=== PATIENT | female | born 1985 | race Hispanic/Latino ===

== ENCOUNTER 2017-01-13 14:23 | Outpatient (RCR) | payer MEDICARE, MEDICAID ==
[~2017-01-13 14:23] MED LIST: /AMIT100TA PO; AMIT75TA PO; ATEN25TA PO; BUSP15TA47 PO; BUSP5TA PO; CARI350T PO; CIPR-250 PO; COLA50CA3 PO; DICL50TAB PO; FLAG500T PO; FLON0.054; HYDR50TA70 PO; HYDRPOW14 PR; LACT20EL PO; ORTHTAB14 PO; PRENTAB45 PO; PROC2.5C PR; TRAM50TA2 PO; TYLE-18 PO; VITA200015 PO
== END 2017-01-15 ==
LOC: M PT 14:23
PROVIDERS: ATTEND Family Medicine
DX: Z51.89 Encounter for other specified aftercare (principal); M25.561 Pain in right knee; M25.562 Pain in left knee
CPT/HCPCS: 97110; 97161; G8978; G8979

== ENCOUNTER 2017-02-10 14:30 | Outpatient (RCR) | payer MEDICARE, MEDICAID ==
[2017-02-11] MEDS ORDERED: ETOD500T PO (11:53)
[2017-02-11] MEDS ORDERED: VITA200025 PO (11:53)
[2017-02-11] MEDS ORDERED: NORT25CA2 PO (11:53)
[2017-02-11] MEDS ORDERED: RIZA10TA4 PO (11:53)
[2017-02-11] MEDS ORDERED: BENT10CA PO (11:53)
[2017-02-11] MEDS ORDERED: DULO1CAP2 PO (11:53)
[2017-02-11] MEDS ORDERED: CLON-412 PO (11:53)
[2017-02-11] MEDS ORDERED: PRED20TA PO (14:55)
[2017-02-11] MEDS ORDERED: GABA-282 PO (14:55)
== END 2017-02-14 ==
LOC: M PT 14:30
PROVIDERS: ATTEND Family Medicine
DX: Z51.89 Encounter for other specified aftercare (principal); M25.561 Pain in right knee; M25.562 Pain in left knee

== ENCOUNTER 2017-02-11 11:26 | Emergency (ER) | payer MEDICARE, MEDICAID ==
[~2017-02-11] VITALS: Ht 157.5 cm; Wt 118.2 kg
[2017-02-11] MEDS ORDERED: BENT10CA PO (11:53)
[2017-02-11] MEDS ORDERED: ETOD500T PO (11:53)
[2017-02-11] MEDS ORDERED: VITA200025 PO (11:53)
[2017-02-11] MEDS ORDERED: CLON-412 PO (11:53)
[2017-02-11] MEDS ORDERED: RIZA10TA4 PO (11:53)
[2017-02-11] MEDS ORDERED: DULO1CAP2 PO (11:53)
[2017-02-11] MEDS ORDERED: NORT25CA2 PO (11:53)
[2017-02-11] MEDS ORDERED: methylPREDNISolone INJ 125 MG/2 ML VIAL (J2930) IV ONE (12:30)
[2017-02-11] MEDS ORDERED: GABAPENTIN 300 MG CAP PO ONE (12:30)
[2017-02-11] MEDS ORDERED: KETOROLAC 30 MG/ML VIAL (J1885) IV ONE (12:30)
[2017-02-11 13:10] LABS: BASO # 0.1 10^3/uL (0.0-0.2); BASO % 0.6 % (0.0-1.0); EOS # 0.2 10^3/uL (0.0-0.50); EOS % 1.6 % (0.0-3.0); IMMATURE GRANULOCYTE % 0.8 % (0-0); LYMPH # 2.4 10^3/uL (1.5-4.5); LYMPH % 23.1 % (24.0-44.0); MEAN CORPUSCULAR HEMOGLOBIN 30.2 pg (27.0-33.0); MEAN CORPUSCULAR HGB CONC 34.2 g/dl (32.0-36.5); MEAN CORPUSCULAR VOLUME 88.4 fl (80.0-96.0); MONO # 0.6 10^3/uL (0.0-0.8); MONO % 5.9 % (0.0-5.0); NEUTROPHILS # 7.2 10^3/uL (1.8-7.7); PLATELET COUNT, AUTOMATED 383 10^3/uL (150-450); RED CELL DISTRIBUTION WIDTH 13.3 % (11.5-14.5); WHITE BLOOD COUNT 10.6 10^3/uL (4.0-10.0)
[2017-02-11 13:33] LABS: ERYTHROCYTE SEDIMENTATION RATE 25 mm/hr (0-20)
[2017-02-11 13:35] LABS: ANION GAP 6 MEQ/L (8-16); BLOOD UREA NITROGEN 8 MG/DL (7-18); CARBON DIOXIDE LEVEL 27 MEQ/L (21-32); CHLORIDE LEVEL 102 MEQ/L (98-107); CREATININE FOR GFR 0.85 MG/DL (0.55-1.02); GLOMERULAR FILTRATION RATE > 60.0 (>60); GLUCOSE, FASTING 87 MG/DL (70-105); SODIUM LEVEL 135 MEQ/L (136-145)
--- NOTE | 2017-02-11 13:35 | REP ---
CHEST, TWO VIEWS: There is no evidence of acute infiltrate. No pleural effusion is seen. The heart is normal in size. The mediastinal silhouette is unremarkable. The visualized osseous structures are intact. IMPRESSION: No acute pulmonary disease. Signed by Jun Luciano MD 02/11/2017 05:06 P
[2017-02-11 14:51] VITALS: BP 130/75
[2017-02-11] MEDS ORDERED: PRED20TA PO (14:55)
[2017-02-11] MEDS ORDERED: GABA-282 PO (14:55)
== END 2017-02-11 15:03 | disposition home or self-care (01) ==
LOC: M ED 11:26
DX: M79.1 Myalgia (principal); M79.7 Fibromyalgia; F41.9 Anxiety disorder, unspecified; F32.9 Major depressive disorder, single episode, unspecified; F43.10 Post-traumatic stress disorder, unspecified; J30.2 Other seasonal allergic rhinitis; F17.200 Nicotine dependence, unspecified, uncomplicated; Z79.899 Other long term (current) drug therapy; Z91.018 Allergy to other foods; Z88.8 Allergy status to other drugs, medicaments and biological substances; Z91.89 Other specified personal risk factors, not elsewhere classified
CPT/HCPCS: 71020; 80048; 81001; 85025; 85652; 86140; 87804; 96374; 96375; 99283; J1885; J2930

== ENCOUNTER 2017-06-07 17:39 | Inpatient (IN) | payer MEDICARE, MEDICAID ==
[2017-06-07] MEDS: MORPHINE 4 MG/ML 1ML SYRINGE IV ×3 (19:15→23:15)
[2017-06-07] MEDS: NS 1,000 ML IV (19:15)
[2017-06-07] MEDS: GASTROGRAFIN SOLUTION 30ML PO ×2 (19:30→20:00)
[2017-06-07 19:40] LABS: BASO # 0.1 10^3/uL (0.0-0.2); BASO % 0.7 % (0.0-1.0); EOS # 0.1 10^3/uL (0.0-0.50); EOS % 0.6 % (0.0-3.0); HEMATOCRIT 41.9 % (36.0-47.0); HEMOGLOBIN 14.4 g/dl (12.0-16.0); IMMATURE GRANULOCYTE # 0.1 10^3/uL (0-0); IMMATURE GRANULOCYTE % 0.6 % (0-0); LYMPH # 2.4 10^3/uL (1.5-4.5); MEAN CORPUSCULAR HEMOGLOBIN 29.9 pg (27.0-33.0); MEAN CORPUSCULAR HGB CONC 34.4 g/dl (32.0-36.5); MEAN CORPUSCULAR VOLUME 87.1 fl (80.0-96.0); MONO # 0.7 10^3/uL (0.0-0.8); MONO % 5.6 % (0.0-5.0); NEUTROPHILS # 9.4 10^3/uL (1.8-7.7); NEUTROPHILS % 73.5 % (36.0-66.0); PLATELET COUNT, AUTOMATED 451 10^3/uL (150-450); RED BLOOD COUNT 4.81 10^6/uL (4.00-5.40); WHITE BLOOD COUNT 12.8 10^3/uL (4.0-10.0)
[2017-06-07 19:54] LABS: ALBUMIN 4.1 GM/DL (3.2-5.2); ALBUMIN/GLOBULIN RATIO 0.93 (1.00-1.93); ALKALINE PHOSPHATASE 102 U/L (45-117); ALT/SGPT 30 U/L (12-78); ANION GAP 7 MEQ/L (8-16); AST/SGOT 26 U/L (7-37); BILIRUBIN,DIRECT 0.2 MG/DL (0.0-0.2); BILIRUBIN,TOTAL 0.7 MG/DL (0.2-1.0); BLOOD UREA NITROGEN 8 MG/DL (7-18); CALCIUM LEVEL 9.1 MG/DL (8.5-10.1); CARBON DIOXIDE LEVEL 25 MEQ/L (21-32); CHLORIDE LEVEL 107 MEQ/L (98-107); CREATININE FOR GFR 0.83 MG/DL (0.55-1.02); GLOMERULAR FILTRATION RATE > 60.0 (>60); GLUCOSE, FASTING 94 MG/DL (70-105); LIPASE 802 U/L (73-393); POTASSIUM SERUM 4.1 MEQ/L (3.5-5.1); SODIUM LEVEL 139 MEQ/L (136-145); TOTAL PROTEIN 8.5 GM/DL (6.4-8.2)
[2017-06-07] MEDS ORDERED: ISOVUE-370 76% 100ML VIAL (Q9967) As Ordered (20:38)
[2017-06-07] MEDS ORDERED: ONDANSETRON 4MG/2ML VIAL (J2405) As Ordered (20:48)
[2017-06-07] MEDS: ONDANSETRON 4MG/2ML VIAL (J2405) IV ×2 (20:52→23:15)
[2017-06-07 21:00] LABS: APPEARANCE, URINE HAZY (CLEAR); BACTERIA, URINE AUTO NEGATIVE (NEGATIVE); BILIRUBIN, URINE AUTO 2+ (NEGATIVE); BLOOD, URINE BLOOD NEGATIVE (NEGATIVE); COLOR, URINE YELLOW (YELLOW); GLUCOSE, URINE (UA) AUTO NEGATIVE (NEGATIVE); KETONE, URINE AUTO TRACE mg/dL (NEGATIVE); LEUKOCYTE ESTERASE, URINE AUTO NEGATIVE (NEGATIVE); MUCUS, URINE SMALL (NEGATIVE); NITRITE, URINE AUTO NEGATIVE (NEGATIVE); PROTEIN, URINE AUTO NEGATIVE (NEGATIVE); RBC, URINE AUTO 10 /HPF (0-3); SQUAMOUS EPITHELIAL CELL UR AU 7 /HPF (0-6); WBC, URINE AUTO 2 /HPF (0-3)
[2017-06-07] MEDS: NORCO 5/325MG TABLET (BULK FOR ED) PO (22:15)
[2017-06-08] MEDS ORDERED: ACETAMINOPHEN TAB 650MG DOSE (2X325MG) PO (00:45)
[2017-06-08] MEDS ORDERED: hydrOXYzine 50 MG TAB PO (02:15)
[2017-06-08] MEDS ORDERED: RIZATRIPTAN MLT 10 MG TAB PO (02:15)
[2017-06-08] MEDS: CIPROFLOXACIN 400 MG in APPROPRIATE DILUENT 1 EA IV ×2 (02:23→15:45)
[2017-06-08] MEDS: metroNIDAZOLE 500 MG in APPROPRIATE DILUENT 1 EA IV ×3 (02:23→17:58)
[2017-06-08] MEDS: PERCOCET 5MG/325MG TAB PO ×3 (02:24→22:59)
[2017-06-08] MEDS: ONDANSETRON 4MG/2ML VIAL (J2405) IV ×3 (05:26→18:04)
[2017-06-08] MEDS: MORPHINE 2 MG/ML 1ML SYRINGE IV ×2 (07:04→14:07)
[2017-06-08] MEDS: DULoxetine 30 MG CAP (CYMBALTA) PO (08:56)
[2017-06-08] MEDS: VITAMIN D 1,000 INTERNATIONAL UNITS TABLET PO (08:56)
[2017-06-08] MEDS: busPIRone 5 MG TAB PO ×2 (08:56→20:47)
[2017-06-08] MEDS: ENOXAPARIN 40 MG/0.4 ML SYRINGE (J1650) SC (08:57)
[2017-06-08] MEDS: cloNIDine 0.1 MG TAB PO ×2 (08:57→20:47)
[2017-06-08 09:57] LABS: CHOLESTEROL LEVEL 166 MG/DL (<200); CHOLESTEROL RISK RATIO 2.553 (<5); HDL CHOLESTEROL 65 MG/DL (>40); LDL CHOLESTEROL 81.4 MG/DL (<100); NON-HDL-C 101 MG/DL; TRIGLYCERIDES LEVEL 98 MG/DL (<150)
[2017-06-08] MEDS: DICYCLOMINE 10 MG CAP PO (11:13)
[2017-06-08] MEDS: NS 1,000 ML IV (14:45)
[2017-06-09] MEDS: metroNIDAZOLE 500 MG in APPROPRIATE DILUENT 1 EA IV ×3 (01:11→18:39)
[2017-06-09] MEDS: CIPROFLOXACIN 400 MG in APPROPRIATE DILUENT 1 EA IV ×2 (02:09→15:40)
[2017-06-09] MEDS: MORPHINE 2 MG/ML 1ML SYRINGE IV (02:16)
[2017-06-09] MEDS: NS 1,000 ML IV ×2 (02:54→15:45)
[2017-06-09 07:01] LABS: HEMATOCRIT 36.7 % (36.0-47.0); HEMOGLOBIN 12.5 g/dl (12.0-16.0); MEAN CORPUSCULAR HEMOGLOBIN 30.4 pg (27.0-33.0); MEAN CORPUSCULAR HGB CONC 34.1 g/dl (32.0-36.5); MEAN CORPUSCULAR VOLUME 89.3 fl (80.0-96.0); PLATELET COUNT, AUTOMATED 333 10^3/uL (150-450); RED BLOOD COUNT 4.11 10^6/uL (4.00-5.40); WHITE BLOOD COUNT 6.6 10^3/uL (4.0-10.0)
[2017-06-09 07:31] LABS: ALBUMIN 3.5 GM/DL (3.2-5.2); ALKALINE PHOSPHATASE 78 U/L (45-117); ALT/SGPT 30 U/L (12-78); ANION GAP 9 MEQ/L (8-16); AST/SGOT 24 U/L (7-37); BILIRUBIN,TOTAL 0.5 MG/DL (0.2-1.0); BLOOD UREA NITROGEN 6 MG/DL (7-18); CALCIUM LEVEL 8.5 MG/DL (8.5-10.1); CARBON DIOXIDE LEVEL 24 MEQ/L (21-32); CHLORIDE LEVEL 106 MEQ/L (98-107); CREATININE FOR GFR 0.82 MG/DL (0.55-1.02); GLOMERULAR FILTRATION RATE > 60.0 (>60); GLUCOSE, FASTING 84 MG/DL (70-100); LIPASE 105 U/L (73-393); POTASSIUM SERUM 3.9 MEQ/L (3.5-5.1); SODIUM LEVEL 139 MEQ/L (136-145)
[2017-06-09] MEDS: VITAMIN D 1,000 INTERNATIONAL UNITS TABLET PO (07:50)
[2017-06-09] MEDS: DICYCLOMINE 10 MG CAP PO (07:50)
[2017-06-09] MEDS: cloNIDine 0.1 MG TAB PO ×2 (07:51→21:03)
[2017-06-09] MEDS: DULoxetine 30 MG CAP (CYMBALTA) PO (07:51)
[2017-06-09] MEDS: busPIRone 5 MG TAB PO ×2 (07:51→21:03)
[2017-06-09] MEDS: PERCOCET 5MG/325MG TAB PO ×2 (07:52→16:37)
[2017-06-09] MEDS: ONDANSETRON 4MG/2ML VIAL (J2405) IV ×2 (07:52→16:35)
[2017-06-09] MEDS: ENOXAPARIN 40 MG/0.4 ML SYRINGE (J1650) SC (07:53)
[2017-06-10] MEDS: NS 1,000 ML IV (00:38)
[2017-06-10] MEDS: metroNIDAZOLE 500 MG in APPROPRIATE DILUENT 1 EA IV ×2 (02:00→09:12)
[2017-06-10] MEDS: CIPROFLOXACIN 400 MG in APPROPRIATE DILUENT 1 EA IV (03:12)
[2017-06-10] MEDS: ONDANSETRON 4MG/2ML VIAL (J2405) IV (04:05)
[2017-06-10 07:20] LABS: HEMATOCRIT 34.5 % (36.0-47.0); HEMOGLOBIN 11.5 g/dl (12.0-16.0); MEAN CORPUSCULAR HEMOGLOBIN 29.7 pg (27.0-33.0); MEAN CORPUSCULAR HGB CONC 33.3 g/dl (32.0-36.5); MEAN CORPUSCULAR VOLUME 89.1 fl (80.0-96.0); PLATELET COUNT, AUTOMATED 320 10^3/uL (150-450); RED BLOOD COUNT 3.87 10^6/uL (4.00-5.40); RED CELL DISTRIBUTION WIDTH 12.9 % (11.5-14.5); WHITE BLOOD COUNT 6.5 10^3/uL (4.0-10.0)
[2017-06-10 07:35] LABS: ALBUMIN 3.2 GM/DL (3.2-5.2); ALBUMIN/GLOBULIN RATIO 1.03 (1.00-1.93); ALKALINE PHOSPHATASE 71 U/L (45-117); ALT/SGPT 34 U/L (12-78); ANION GAP 5 MEQ/L (8-16); AST/SGOT 29 U/L (7-37); BILIRUBIN,TOTAL 0.4 MG/DL (0.2-1.0); BLOOD UREA NITROGEN 5 MG/DL (7-18); CALCIUM LEVEL 8.3 MG/DL (8.5-10.1); CARBON DIOXIDE LEVEL 28 MEQ/L (21-32); CHLORIDE LEVEL 106 MEQ/L (98-107); CREATININE FOR GFR 0.88 MG/DL (0.55-1.02); GLOMERULAR FILTRATION RATE > 60.0 (>60); GLUCOSE, FASTING 86 MG/DL (70-100); SODIUM LEVEL 139 MEQ/L (136-145); TOTAL PROTEIN 6.3 GM/DL (6.4-8.2)
[2017-06-10] MEDS: ENOXAPARIN 40 MG/0.4 ML SYRINGE (J1650) SC (08:17)
[2017-06-10] MEDS: DULoxetine 30 MG CAP (CYMBALTA) PO (08:17)
[2017-06-10] MEDS: busPIRone 5 MG TAB PO ×2 (08:17→20:17)
[2017-06-10] MEDS: VITAMIN D 1,000 INTERNATIONAL UNITS TABLET PO (08:20)
[2017-06-10] MEDS: cloNIDine 0.1 MG TAB PO ×2 (08:20→20:18)
[2017-06-10] MEDS: PERCOCET 5MG/325MG TAB PO ×2 (08:21→12:45)
[2017-06-10] MEDS: DICYCLOMINE 10 MG CAP PO (09:12)
[2017-06-10] MEDS ORDERED: metroNIDAZOLE (FLAGYL) 500 MG TAB PO (14:00)
[2017-06-10] MEDS: metroNIDAZOLE (FLAGYL) 500 MG TAB PO (17:09)
[2017-06-10] MEDS: CIPROFLOXACIN 500 MG TAB PO (17:09)
[2017-06-10] MEDS ORDERED: FLEET ENEMA PR (20:00)
[2017-06-10] MEDS: MIRALAX *UNIT DOSE* 17GM PACKET PO (20:17)
[2017-06-10] MEDS: MOM 30ML SUSPENSION UDC PO (20:17)
[2017-06-10] MEDS: BISACODYL 5 MG TAB PO (20:18)
[2017-06-11] MEDS: metroNIDAZOLE (FLAGYL) 500 MG TAB PO ×2 (01:23→08:09)
[2017-06-11] MEDS: CIPROFLOXACIN 500 MG TAB PO (05:34)
[2017-06-11 06:32] LABS: HEMATOCRIT 36.3 % (36.0-47.0); HEMOGLOBIN 12.2 g/dl (12.0-16.0); MEAN CORPUSCULAR HEMOGLOBIN 29.8 pg (27.0-33.0); MEAN CORPUSCULAR HGB CONC 33.6 g/dl (32.0-36.5); MEAN CORPUSCULAR VOLUME 88.5 fl (80.0-96.0); PLATELET COUNT, AUTOMATED 308 10^3/uL (150-450); RED CELL DISTRIBUTION WIDTH 12.8 % (11.5-14.5); WHITE BLOOD COUNT 7.1 10^3/uL (4.0-10.0)
[2017-06-11 06:56] LABS: ALBUMIN 3.3 GM/DL (3.2-5.2); ALBUMIN/GLOBULIN RATIO 0.85 (1.00-1.93); ALKALINE PHOSPHATASE 79 U/L (45-117); ALT/SGPT 47 U/L (12-78); ANION GAP 5 MEQ/L (8-16); AST/SGOT 55 U/L (7-37); BILIRUBIN,TOTAL 0.3 MG/DL (0.2-1.0); BLOOD UREA NITROGEN 5 MG/DL (7-18); CALCIUM LEVEL 8.4 MG/DL (8.5-10.1); CARBON DIOXIDE LEVEL 28 MEQ/L (21-32); CHLORIDE LEVEL 106 MEQ/L (98-107); CREATININE FOR GFR 0.92 MG/DL (0.55-1.02); GLOMERULAR FILTRATION RATE > 60.0 (>60); GLUCOSE, FASTING 96 MG/DL (70-100); POTASSIUM SERUM 4.2 MEQ/L (3.5-5.1); SODIUM LEVEL 139 MEQ/L (136-145); TOTAL PROTEIN 7.2 GM/DL (6.4-8.2)
[2017-06-11] MEDS: cloNIDine 0.1 MG TAB PO (08:09)
[2017-06-11] MEDS: VITAMIN D 1,000 INTERNATIONAL UNITS TABLET PO (08:09)
[2017-06-11] MEDS: DULoxetine 30 MG CAP (CYMBALTA) PO (08:09)
[2017-06-11] MEDS: ENOXAPARIN 40 MG/0.4 ML SYRINGE (J1650) SC (08:09)
[2017-06-11] MEDS: BISACODYL 5 MG TAB PO (08:10)
[2017-06-11] MEDS: busPIRone 5 MG TAB PO (08:10)
== END 2017-06-11 13:25 | disposition home or self-care (01) | DRG 392 ==
LOC: M ED INP 06-08 00:43 → M MS4PR 06-08 01:40 → M ED 17:39
DX: K52.9 Noninfective gastroenteritis and colitis, unspecified (principal); G47.33 Obstructive sleep apnea (adult) (pediatric); F17.210 Nicotine dependence, cigarettes, uncomplicated; M79.7 Fibromyalgia; Z98.1 Arthrodesis status; Z99.89 Dependence on other enabling machines and devices; Z79.899 Other long term (current) drug therapy; Z91.018 Allergy to other foods; Z91.048 Other nonmedicinal substance allergy status; Z88.8 Allergy status to other drugs, medicaments and biological substances

== ENCOUNTER → 2017-06-17 | Outpatient (CLI) | payer MEDICARE, MEDICAID | LOC: M RAD 15:22 | DX: R10.84 Generalized abdominal pain (principal); R11.2 Nausea with vomiting, unspecified; R19.7 Diarrhea, unspecified; Z97.5 Presence of (intrauterine) contraceptive device | CPT/HCPCS: 74021 ==

== ENCOUNTER → 2017-06-21 | Outpatient (REF) | payer MEDICARE, MEDICAID | LOC: M LAB 09:08 | DX: R19.7 Diarrhea, unspecified (principal) | CPT/HCPCS: 83630 ==

== ENCOUNTER 2017-07-03 01:23 | Emergency (ER) | payer MEDICARE, MEDICAID ==
[2017-07-03 03:12] LABS: INFLUENZA A AMPLIFICATION NEGATIVE (NEGATIVE); INFLUENZA B AMPLIFICATION NEGATIVE (NEGATIVE)
== END 2017-07-03 03:33 | disposition left against medical advice (07) ==
LOC: M ED 01:23
DX: Z53.29 Procedure and treatment not carried out because of patient's decision for other reasons (principal)

== ENCOUNTER 2017-07-21 10:51 | Outpatient (CLI) | payer MEDICARE, MEDICAID | END 2017-07-22 | LOC: M LAB 10:51 | DX: A04.72 Enterocolitis due to Clostridium difficile, not specified as recurrent (principal) ==

== ENCOUNTER 2017-07-29 10:27 | Emergency (ER) | payer MEDICARE, MEDICAID ==
[2017-07-29] MEDS: METOCLOPRAMIDE INJ 10MG/2ML VIAL (J2765) IV (11:15)
[2017-07-29] MEDS: NS 1,000 ML IV (11:15)
[2017-07-29 11:29] LABS: BASO # 0.1 10^3/uL (0.0-0.2); BASO % 0.6 % (0.0-1.0); EOS # 0.1 10^3/uL (0.0-0.50); EOS % 1.1 % (0.0-3.0); HEMATOCRIT 39.8 % (36.0-47.0); HEMOGLOBIN 13.6 g/dl (12.0-16.0); IMMATURE GRANULOCYTE % 0.5 % (0-3.0); LYMPH % 23.1 % (24.0-44.0); MEAN CORPUSCULAR HEMOGLOBIN 29.8 pg (27.0-33.0); MEAN CORPUSCULAR HGB CONC 34.2 g/dl (32.0-36.5); MEAN CORPUSCULAR VOLUME 87.3 fl (80.0-96.0); MONO # 0.5 10^3/uL (0.0-0.8); MONO % 6.1 % (0.0-5.0); NEUTROPHILS % 68.6 % (36.0-66.0); PLATELET COUNT, AUTOMATED 328 10^3/uL (150-450); RED BLOOD COUNT 4.56 10^6/uL (4.00-5.40); RED CELL DISTRIBUTION WIDTH 13.1 % (11.5-14.5); WHITE BLOOD COUNT 8.8 10^3/uL (4.0-10.0)
[2017-07-29 11:52] LABS: ANION GAP 8 MEQ/L (8-16); BLOOD UREA NITROGEN 5 MG/DL (7-18); CALCIUM LEVEL 8.8 MG/DL (8.5-10.1); CARBON DIOXIDE LEVEL 25 MEQ/L (21-32); CHLORIDE LEVEL 107 MEQ/L (98-107); CREATININE FOR GFR 0.74 MG/DL (0.55-1.30); GLOMERULAR FILTRATION RATE > 60.0 (>60); GLUCOSE, FASTING 99 MG/DL (70-100); POTASSIUM SERUM 4.1 MEQ/L (3.5-5.1); SODIUM LEVEL 140 MEQ/L (136-145)
[2017-07-29] MEDS: MORPHINE 4 MG/ML 1ML VIAL (J2270) IV (12:26)
== END 2017-07-29 14:35 | disposition home or self-care (01) ==
LOC: M ED 10:27
DX: R11.2 Nausea with vomiting, unspecified (principal); R19.7 Diarrhea, unspecified; R10.9 Unspecified abdominal pain; K58.9 Irritable bowel syndrome, unspecified; M79.7 Fibromyalgia; N80.9 Endometriosis, unspecified; M43.26 Fusion of spine, lumbar region; J30.2 Other seasonal allergic rhinitis; Z86.19 Personal history of other infectious and parasitic diseases; Z87.891 Personal history of nicotine dependence; Z79.899 Other long term (current) drug therapy; Z88.8 Allergy status to other drugs, medicaments and biological substances; Z91.89 Other specified personal risk factors, not elsewhere classified; Z91.018 Allergy to other foods
CPT/HCPCS: J2270

== ENCOUNTER → 2017-08-10 | Outpatient (CLI) | payer MEDICARE, MEDICAID | LOC: M RAD 07:09 | DX: R10.84 Generalized abdominal pain (principal); K82.8 Other specified diseases of gallbladder | CPT/HCPCS: 76705 ==

== ENCOUNTER 2017-10-01 08:46 | Emergency (ER) | payer MEDICARE, MEDICAID ==
[2017-10-01] MEDS: NS 1,000 ML IV (09:30)
[2017-10-01 09:59] LABS: BASO # 0.1 10^3/uL (0.0-0.2); BASO % 0.6 % (0.0-1.0); EOS # 0.1 10^3/uL (0.0-0.50); EOS % 0.9 % (0.0-3.0); HEMATOCRIT 41.4 % (36.0-47.0); HEMOGLOBIN 14.5 g/dl (12.0-15.5); IMMATURE GRANULOCYTE % 0.4 % (0-3.0); LYMPH % 23.9 % (24.0-44.0); MEAN CORPUSCULAR HEMOGLOBIN 30.2 pg (27.0-33.0); MEAN CORPUSCULAR VOLUME 86.3 fl (80.0-96.0); MONO # 0.6 10^3/uL (0.0-0.8); MONO % 7.2 % (0.0-5.0); NEUTROPHILS # 5.5 10^3/uL (1.8-7.7); PLATELET COUNT, AUTOMATED 331 10^3/uL (150-450); RED CELL DISTRIBUTION WIDTH 13.2 % (11.5-14.5); WHITE BLOOD COUNT 8.2 10^3/uL (4.0-10.0)
[2017-10-01 10:04] LABS: KETONE, URINE AUTO RFX NEGATIVE (NEGATIVE); LEUKOCYTE ESTERASE UR AUTO RFX NEGATIVE (NEGATIVE); MUCUS, URINE RFX SMALL (NEGATIVE); NITRITE, URINE AUTO RFX NEGATIVE (NEGATIVE); RBC, URINE AUTO RFX 1 /HPF (0-3); SPECIFIC GRAVITY UR AUTO RFX 1.006 (1.002-1.035); SQUAM EPITHELIAL CELL UR AURFX 1 /HPF (0-6); WBC, URINE AUTO RFX 0 /HPF (0-3)
[2017-10-01] MEDS: ONDANSETRON 4MG/2ML VIAL (J2405) IV ×2 (10:08→11:40)
[2017-10-01] MEDS: KETOROLAC 30 MG/ML VIAL (J1885) IV (10:11)
[2017-10-01 10:28] LABS: ALBUMIN 3.9 GM/DL (3.2-5.2); ALBUMIN/GLOBULIN RATIO 0.95 (1.00-1.93); ALKALINE PHOSPHATASE 91 U/L (45-117); ALT/SGPT 39 U/L (12-78); ANION GAP 8 MEQ/L (8-16); AST/SGOT 34 U/L (7-37); BILIRUBIN,TOTAL 0.7 MG/DL (0.2-1.0); BLOOD UREA NITROGEN 7 MG/DL (7-18); CARBON DIOXIDE LEVEL 22 MEQ/L (21-32); CHLORIDE LEVEL 109 MEQ/L (98-107); CREATININE FOR GFR 0.85 MG/DL (0.55-1.30); GLOMERULAR FILTRATION RATE > 60.0 (>60); GLUCOSE, FASTING 101 MG/DL (70-100); LIPASE 177 U/L (73-393); POTASSIUM SERUM 4.3 MEQ/L (3.5-5.1); SODIUM LEVEL 139 MEQ/L (136-145)
[2017-10-01] MEDS: MORPHINE 4 MG/ML 1ML VIAL/SYRINGE (J2270) IV (11:40)
[2017-10-01] MEDS: TAMSULOSIN 0.4 MG CAP PO (12:08)
== END 2017-10-01 12:21 | disposition home or self-care (01) ==
LOC: M ED 08:46
DX: N83.291 Other ovarian cyst, right side (principal); N20.1 Calculus of ureter; R10.31 Right lower quadrant pain; R10.9 Unspecified abdominal pain; R11.2 Nausea with vomiting, unspecified; R19.7 Diarrhea, unspecified; J30.2 Other seasonal allergic rhinitis; Z97.5 Presence of (intrauterine) contraceptive device; Z79.899 Other long term (current) drug therapy; Z88.8 Allergy status to other drugs, medicaments and biological substances; Z91.89 Other specified personal risk factors, not elsewhere classified; Z88.5 Allergy status to narcotic agent; Z91.018 Allergy to other foods
CPT/HCPCS: J2270